=== PATIENT | female | born 1995 | race African-American/Black ===

== ENCOUNTER 2019-10-07 18:58 | Emergency (ER) | payer MEDICAID ==
[~2019-10-07] VITALS: Ht 160 cm; Wt 46.0 kg
[2019-10-07] MEDS ORDERED: ONDANSETRON 4MG ODT PO ONE (21:45)
[2019-10-07] MEDS ORDERED: MECLIZINE 12.5MG TABLET PO ONE (21:45)
[2019-10-07 23:20] VITALS: BP 127/89
== END 2019-10-07 23:21 | disposition home or self-care (01) ==
LOC: ER 18:58
DX: R42 Dizziness and giddiness (principal)
CPT/HCPCS: 99283; J8597; Q0162